=== PATIENT | male | born 1945 | race American Indian/Alaskan Native ===

== ENCOUNTER 2020-08-29 05:49 | Observation (INO) | payer OTHER ==
[2020-08-24 11:38] LABS: Hematocrit 36.6 % (35.5-45.6); Hemoglobin 12.4 gm/dl (11.8-15.2); Mean Corpuscular HGB Conc 34 % (32-34); Mean Corpuscular Volume 99 fl (84-94); Platelet Count 182 K/mm3 (140-440); Red Blood Count 3.71 M/mm3 (3.65-5.03); Red Cell Distribution Width 14.9 % (13.2-15.2)
[2020-08-24 11:57] LABS: Alanine Aminotransferase 16 units/L (7-56); Albumin 3.9 g/dL (3.9-5); BUN/Creatinine Ratio 9; Blood Urea Nitrogen 11 mg/dL (9-20); Calcium 8.6 mg/dL (8.4-10.2); Hemolysis Index 6
--- NOTE | 2020-08-24 15:52 | Anesthesia Consultation ---
Anesthesia Consult and Med Hx Date of service: 08/28/20 - Airway Anesthetic Teeth Evaluation: Crowns (Two missing teeth) ROM Head & Neck: Adequate Mental/Hyoid Distance: Adequate Mallampati Class: Class II Intubation Access Assessment: Good - Pre-Operative Health Status ASA Pre-Surgery Classification: ASA2 Proposed Anesthetic Plan: General - Pulmonary Hx Smoking: Yes (QUIT 2014) Hx Asthma: No Hx Respiratory Symptoms: No (+2FS. Pt is very active) COPD: No Hx Pneumonia: No Hx Sleep Apnea: No - Cardiovascular System Hx Hypertension: Yes Hx Coronary Artery Disease: Yes Hx Heart Attack/AMI: No Hx Pacemaker: No Hx Internal Defibrillator: No - Central Nervous System Hx Seizures: No Hx Back Pain: No Hx Psychiatric Problems: No - Gastrointestinal Hx Gastroesophageal Reflux Disease: Yes - Endocrine Hx End Stage Renal Disease: No Hx Cirrhosis: No Hx Liver Disease: No Hx Non-Insulin Dependent Diabetes: No (In the past. Had pancreatitis May 2018) - Hematic Hx Anemia: Yes (Had a blood transfusion) Hx Sickle Cell Disease: No - Other Systems Hx Alcohol Use: Yes (TEQUILA-WINE- 2 BEERS 2 SHOTS /DAY) Hx Substance Use: No Hx Cancer: No Hx Obesity: No
[2020-08-29] MEDS ORDERED: CELECOXIB 200 MG CAP PO NR (06:00)
[2020-08-29] MEDS ORDERED: ceFAZolin/Water 2 GM/20 ML 2 GM/20 ML SYRINGE IV NR (06:00)
[2020-08-29] MEDS ORDERED: MAGNESIUM OXIDE 400 MG TAB PO SCH (06:00)
[2020-08-29] MEDS ORDERED: SODIUM CHLORIDE 0.9% IV SCH (06:00)
[2020-08-29] MEDS ORDERED: ACETAMINOPHEN 325 MG TAB PO SCH (06:00)
[2020-08-29] MEDS ORDERED: LACTATED RINGERS 1,000 ML IV SCH (06:00)
[2020-08-29] MEDS ORDERED: GENTAMICIN IV SCH (06:00)
[2020-08-29] MEDS ORDERED: BACTERIOSTATIC SODIUM CHLORIDE 0.9% 30 ML VIAL INFILTRATI ONE (06:25)
[2020-08-29] MEDS ORDERED: MIDAZOLAM 2 MG/2 ML INJ IV ONE (06:48)
--- NOTE | 2020-08-29 07:07 | Anesthesia Day of Surgery ---
Anesthesia Day of Surgery - Day of Surgery Patient Examined: Yes Patient H&P Reviewed: Yes Patient is NPO: Yes
[2020-08-29] MEDS ORDERED: SODIUM CHLORIDE P/F VIAL 10 ML 10 ML ONE (07:14)
[2020-08-29] MEDS ORDERED: BUPIVACAINE/PF (0.5%) 5 MG/1 ML 30 ML VIAL INFILTRATI ONE ×2 (07:14→08:22)
[2020-08-29] MEDS ORDERED: NEOMY 40 MG/POLYMYXIN B 200,000 UNITS/ML (GU) AMPULE IR ONE ×2 (07:15→08:24)
[2020-08-29] MEDS ORDERED: rifAMPin 600 MG VIAL ONE (07:15)
[2020-08-29] MEDS ORDERED: SODIUM CHLORIDE 0.9% 500 ML 500 ML ONE (07:17)
[2020-08-29] MEDS ORDERED: fentaNYL 100 MCG/2 ML INJ ONE (07:34)
[2020-08-29] MEDS ORDERED: ONDANSETRON 4 MG/2 ML INJ IV PRN ×2 (07:34→10:00)
[2020-08-29] MEDS ORDERED: propofoL 200 MG/20 ML VIAL IV ONE (07:34)
[2020-08-29] MEDS ORDERED: LIDOCAINE MPF (2%) 20 MG/1 ML VIAL 5 ML ONE (07:34)
[2020-08-29] MEDS ORDERED: GENTAMICIN 40 MG/ML VIAL 2 ML ONE (07:47)
[2020-08-29] MEDS ORDERED: PHENYLEPHRINE/NS 1,000 MCG/10 ML SYRINGE (OR USE) IV ONE (07:54)
[2020-08-29] MEDS ORDERED: KETOROLAC 30 MG/1 ML INJ ONE (07:54)
[2020-08-29] MEDS ORDERED: ONDANSETRON 4 MG/2 ML INJ ONE (07:54)
[2020-08-29] MEDS ORDERED: rifAMPin 600 MG VIAL IV ONE (08:23)
[2020-08-29] MEDS ORDERED: SODIUM CHLORIDE 0.9% 500 ML IVPB IRRIGATION ONE (08:23)
[2020-08-29] MEDS ORDERED: GENTAMICIN 40 MG/ML VIAL 2 ML IV ONE (08:23)
[2020-08-29] MEDS ORDERED: SODIUM CHLORIDE 0.9% P/F 10 ML VIAL INFILTRATI ONE (08:24)
[2020-08-29] MEDS ORDERED: SODIUM CHLORIDE 0.9% IRR 1,500 ML BOTTLE IR ONE (08:25)
--- NOTE | 2020-08-29 09:06 | Short Stay Summary ---
Short Stay Documentation Date of service: 08/29/20 - History H&P: obtained from office - Allergies and Medications Current Medications: Allergies CODEINE-CAUSES UPSET STOMACH Adverse Reaction (Intermediate, Uncoded 08/22/20 16:54) Unknown Home Medications Medication Instructions Recorded Confirmed Last Taken Type Aspirin [Adult Aspirin] 81 mg PO DAILY 08/22/20 08/22/20 08/28/20 History Atorvastatin 20 mg PO DAILY 08/22/20 08/22/20 08/29/20 05:00 History Folic Acid 1,000 mcg PO DAILY 08/22/20 08/22/20 08/28/20 History One Daily Multivitamin Tablet 60 mg PO DAILY 08/22/20 08/22/20 08/28/20 History Pantoprazole [Protonix TAB] 20 mg PO BID 08/22/20 08/22/20 08/28/20 History Potassium Chloride 20 mcg PO DAILY 08/22/20 08/22/20 08/28/20 History Thiamine HCl [Vitamin B-1] 100 mg PO DAILY 08/22/20 08/22/20 08/28/20 History Vitamin B12 1,000 mcg PO DAILY 08/22/20 08/22/20 08/28/20 History Vitamin D3 25 mcg PO DAILY 08/22/20 08/22/20 08/28/20 History amLODIPine 10 mg PO DAILY 08/22/20 08/22/20 08/29/20 05:00 History carvediloL 25 mg PO BID 08/22/20 08/22/20 08/29/20 05:00 History Active Medications Acetaminophen (Acetaminophen 325 Mg Tab) 650 mg PO ONCE MAURICIO Stop: 08/29/20 21:00 Last Admin: 08/29/20 06:45 Dose: 650 mg Documented by: Celecoxib (Celecoxib 200 Mg Cap) 200 mg PO PREOP NR Stop: 08/29/20 21:00 Last Admin: 08/29/20 06:45 Dose: 200 mg Documented by: Hydromorphone HCl (Hydromorphone 1 Mg/1 Ml Inj) 0.5 mg IV Q10MIN PRN PRN Reason: Pain , Severe (7-10) Stop: 08/29/20 23:00 Lactated Ringer's (Lactated Ringers) 1,000 mls @ 100 mls/hr IV DIRECT MAURICIO Last Admin: 08/29/20 06:50 Dose: 100 mls/hr Documented by: Gentamicin Sulfate 132 mg/ (Sodium Chloride) 103.3 mls @ 200 mls/hr IV PREOP MAURICIO; Protocol Stop: 08/29/20 21:00 Cefazolin Sodium (Ancef/Sterile Water 2 Gm/20 Ml) 2 gm in 20 mls @ 80 mls/hr IV PREOP NR; Protocol Stop: 08/29/20 21:00 Magnesium Oxide (Magnesium Oxide 400 Mg Tab) 400 mg PO ONCE MAURICIO Stop: 08/29/20 21:00 Last Admin: 08/29/20 06:45 Dose: 400 mg Documented by: Ondansetron HCl (Ondansetron 4 Mg/2 Ml Inj) 4 mg IV ONCE PRN PRN Reason: Nausea And Vomiting Stop: 08/29/20 18:00 - Brief post op/procedure progress note Date of procedure: 08/29/20 Pre-op diagnosis: ed Post-op diagnosis: other (redundant scrotal skin) Procedure: ipp (cololast titan--- 22cm + 1 CM RTE) scrotaplasty Anesthesia: GETA Surgeon: CODI BXO Estimated blood loss: minimal Pathology: list (skin) Specimen disposition: to lab Condition: stable - Hospital course Hospital course: post op info on chart (pt has abx, pain meds at home) tanner urine & wrap looks good await bladder ultrasound if voids, ok to dc home ADDENDUM-- US--MILD MEDICAL RENAL DISEASE, PVR 100CC PT JUST VOIDED 300CC--- 1PM---SPOKE WITH NURSE DC HOME - Disposition Condition at discharge: Stable Short Stay Discharge Plan Follow up with: [facility] [Primary Care Provider] - 7 Days
[2020-08-29] MEDS ORDERED: HYDROmorphone 2 MG TAB PO PRN (09:30)
[2020-08-29] MEDS ORDERED: NALOXONE 0.4 MG/1 ML INJ IV PRN (09:30)
[2020-08-29] MEDS: HYDROmorphone 1 MG/1 ML INJ IV PRN ×3 (09:31→20:10)
[2020-08-29] MEDS ORDERED: MORPHINE 2 MG/1 ML INJ ONE ×2 (09:51→10:05)
[2020-08-29] MEDS ORDERED: NON-FORMULARY EACH (Amlodipine 10 MG) PO SCH (10:00)
[2020-08-29] MEDS ORDERED: POTASSIUM CHLORIDE PO SCH (10:00)
[2020-08-29] MEDS ORDERED: NON-FORMULARY EACH (Atorvastatin 20 MG) PO SCH (10:00)
[2020-08-29] MEDS ORDERED: traMADol 50 MG TAB PO PRN (10:00)
[2020-08-29] MEDS ORDERED: NON-FORMULARY EACH (Carvedilol 25 MG) PO SCH (10:00)
[2020-08-29] MEDS ORDERED: ceFAZolin/NS 1 GM/50 ML 1 GM/50 ML BAG IV SCH (10:00)
[2020-08-29] MEDS ORDERED: amLODIPine 10 MG TAB PO SCH (10:00)
[2020-08-29] MEDS: SODIUM CHLORIDE 0.45% 1000 ML 1,000 ML IV SCH ×2 (10:02→22:58)
[2020-08-29] MEDS: MORPHINE 2 MG/1 ML INJ IV PRN ×3 (10:08→10:40)
[2020-08-29] MEDS ORDERED: HYDROcodone/ACETAMINOPHEN 5-325 MG TAB PO PRN (10:51)
[2020-08-29] MEDS: amLODIPine 10 MG TAB PO SCH (10:52)
[2020-08-29] MEDS: PANTOPRAZOLE 20 MG TAB PO SCH ×2 (11:25→22:54)
[2020-08-29] MEDS: carvediloL 25 MG TAB PO SCH ×2 (11:26→22:58)
[2020-08-29] MEDS: POTASSIUM CHLORIDE ER 20 MEQ TAB PO SCH (11:30)
[2020-08-29] MEDS: HYDROmorphone 2 MG/1 ML INJ IV PRN ×2 (12:10→23:04)
--- NOTE | 2020-08-29 13:14 | Operative Report ---
PREOPERATIVE DIAGNOSIS: Erectile dysfunction. POSTOPERATIVE DIAGNOSIS: Erectile dysfunction, redundant scrotal skin. PROCEDURE: Insertion of inflatable penile prosthesis (Coloplast Titan 21 cm +1 cm rear tip video game engineer), injection of corporal body with pharmacologic agent, scrotoplasty. SURGEON: Kingsley Licea MD TECHNOLOGY ANALYST: Eli Maldonado. ANESTHESIA: General. ESTIMATED BLOOD LOSS: Minimal. FLUIDS: Crystalloid. COMPLICATIONS: No complications. INDICATIONS: This patient is a 74-year-old gentleman seen in the office for erectile dysfunction, refractory to medical management. He reviewed our video, his was also present for the visit. Discussed options. He agreed to proceed with surgical intervention. DESCRIPTION OF PROCEDURE: The patient was taken to the operative suite, placed in a supine position. After adequate general anesthesia, he was prepped and draped in a sterile fashion. Chung catheter was placed on the operative field. 60 mL of 0.25% Marcaine was injected. No curvature could be appreciated. Metal [place] retractor was used for exposure. A transscrotal incision was made with the Bovie. Sharp dissection was taken down to the corporal bodies, 2-0 Vicryl stay sutures were placed. Corporotomies were made bilaterally with the Bovie. Proximal and distal measurements revealed a 23 cm corporal body and therefore a 22 cm Titan Coloplast implant was used with the Conceal reservoir with 110 mL in the reservoir and 40 mL will be placed in the device. The reservoir was placed in the retropubic space via the right external ring as stated, 110 mL of fluid. No back pressure. 22 cm cylinders were prepped, placed in the corporal bodies with the aid of a Marc needle. Corporotomies were closed bilaterally using 2-0 Vicryl in a running fashion. Insufflation revealed an adequate cosmetic appearance. Tips of the device were at the junction of the coronal ridge. The pump was placed in the dependent portion of the scrotum. The pump and reservoir was connected with the quick click connection system. Copious irrigation was performed. Adequate hemostasis achieved. [place] layer was closed with 2-0 Vicryl in a running fashion. Pursestring suture was used to secure the pump in the dependent portion of the scrotum. Redundant scrotal skin was excised and sent for routine pathologic evaluation. Scrotal skin was then closed with 3-0 Vicryl in interrupted fashion. Collodion was placed, Xeroform gauze and a mummy wrap. The patient tolerated the procedure well and was extubated and taken to recovery room. He will be observed overnight. Eli Maldonado was present throughout the procedure at the bedside to assist. JOB# [id number] [facility]
--- NOTE | 2020-08-29 13:48 | Post Anesthesia Evaluation ---
- Post Anesthesia Evaluation Patient Participated: Yes Airway Patent: Yes Stable Respiratory Function: Yes Nausea/Vomiting: No Temp > 96.8F: Yes Pain Manageable: Yes Adequeate Hydration: Yes Anesthesia Complications: No Other Comments: Awaiting bed placement.
--- NOTE | 2020-08-29 14:29 | Consultation ---
History of Present Illness - Reason for Consult Consult date: 08/29/20 hypertension Requesting physician: CODI BOX - History of Present Illness Patient is a 74-year-old male with past medical history of hypertension hyperlipidemia rectal dysfunction who presented for scrotaplasty with ipp. Patient was seen after the procedures were consulted to assist with medical management. Apart from surgical site pain he denied any nausea vomiting or diarrhea. He was a little bit lethargic otherwise no acute distress noted. He reports compliance with his home medications. Past History Past Medical History: hypertension, hyperlipidemia Past Surgical History: Other (Scrotoplasty) Social history: no significant social history, Family history: no significant family history Medications and Allergies Allergies Allergy/AdvReac Type Severity Reaction Status Date / Time CODEINE-CAUSES UPSET STOMACH AdvReac Intermediate Unknown Uncoded 08/22/20 16:54 Home Medications Medication Instructions Recorded Confirmed Last Taken Type Aspirin [Adult Aspirin] 81 mg PO DAILY 08/22/20 08/22/20 08/28/20 History Atorvastatin 20 mg PO DAILY 08/22/20 08/22/20 08/29/20 05:00 History Folic Acid 1,000 mcg PO DAILY 08/22/20 08/22/20 08/28/20 History One Daily Multivitamin Tablet 60 mg PO DAILY 08/22/20 08/22/20 08/28/20 History Pantoprazole [Protonix TAB] 20 mg PO BID 08/22/20 08/22/20 08/28/20 History Potassium Chloride 20 mcg PO DAILY 08/22/20 08/22/20 08/28/20 History Thiamine HCl [Vitamin B-1] 100 mg PO DAILY 08/22/20 08/22/20 08/28/20 History Vitamin B12 1,000 mcg PO DAILY 08/22/20 08/22/20 08/28/20 History Vitamin D3 25 mcg PO DAILY 08/22/20 08/22/20 08/28/20 History amLODIPine 10 mg PO DAILY 08/22/20 08/22/20 08/29/20 05:00 History carvediloL 25 mg PO BID 08/22/20 08/22/20 08/29/20 05:00 History Active Meds: Active Medications Acetaminophen (Acetaminophen 325 Mg Tab) 650 mg PO ONCE MAURICIO Stop: 08/29/20 21:00 Last Admin: 08/29/20 06:45 Dose: 650 mg Documented by: Amlodipine Besylate (Amlodipine 10 Mg Tab) 10 mg PO DAILY MAURICIO Last Admin: 08/29/20 10:52 Dose: Not Given Documented by: Atorvastatin Calcium (Atorvastatin 20 Mg Tab) 20 mg PO QHS MAURICIO Carvedilol (Carvedilol 25 Mg Tab) 25 mg PO Q12HR MAURICIO Last Admin: 08/29/20 11:26 Dose: 25 mg Documented by: Celecoxib (Celecoxib 200 Mg Cap) 200 mg PO PREOP NR Stop: 08/29/20 21:00 Last Admin: 08/29/20 06:45 Dose: 200 mg Documented by: Hydromorphone HCl (Hydromorphone 1 Mg/1 Ml Inj) 0.5 mg IV Q10MIN PRN PRN Reason: Pain , Severe (7-10) Stop: 08/29/20 23:00 Last Admin: 08/29/20 09:42 Dose: 0.5 mg Documented by: Hydromorphone HCl (Hydromorphone 2 Mg/1 Ml Inj) 2 mg IV Q4H PRN PRN Reason: Pain , Severe (7-10) Last Admin: 08/29/20 12:10 Dose: 2 mg Documented by: Hydromorphone HCl (Hydromorphone 2 Mg Tab) 2 mg PO Q4H PRN PRN Reason: Pain , Severe (7-10) Gentamicin Sulfate 132 mg/ (Sodium Chloride) 103.3 mls @ 200 mls/hr IV PREOP MAURICIO; Protocol Stop: 08/29/20 21:00 Cefazolin Sodium (Ancef/Sterile Water 2 Gm/20 Ml) 2 gm in 20 mls @ 80 mls/hr IV PREOP NR; Protocol Stop: 08/29/20 21:00 Sodium Chloride (Nacl 0.45% 1000 Ml) 1,000 mls @ 100 mls/hr IV DIRECT MAURICIO Last Admin: 08/29/20 10:02 Dose: 100 mls/hr Documented by: Cefazolin Sodium (Ancef/Ns 1 Gm/50 Ml) 1 gm in 50 mls @ 100 mls/hr IV Q8H MAURICIO; Protocol Stop: 08/29/20 18:29 Magnesium Oxide (Magnesium Oxide 400 Mg Tab) 400 mg PO ONCE MAURICIO Stop: 08/29/20 21:00 Last Admin: 08/29/20 06:45 Dose: 400 mg Documented by: Morphine Sulfate (Morphine 2 Mg/1 Ml Inj) 2 mg IV Q10MIN PRN PRN Reason: Pain, Moderate (4-6) Stop: 08/29/20 20:00 Last Admin: 08/29/20 10:40 Dose: 2 mg Documented by: Naloxone HCl (Naloxone 0.4 Mg/1 Ml Inj) 0.1 mg IV Q2MIN PRN PRN Reason: Res Rate </= 8 or 02 SAT < 92% Ondansetron HCl (Ondansetron 4 Mg/2 Ml Inj) 4 mg IV Q8H PRN PRN Reason: N/V unrelieved by Reglan Pantoprazole Sodium (Pantoprazole 20 Mg Tab) 20 mg PO BID [facility] Last Admin: 08/29/20 11:25 Dose: 20 mg Documented by: Potassium Chloride (Potassium Chloride Er 20 Meq Tab) 20 meq PO QDAY [facility] Last Admin: 08/29/20 11:30 Dose: 20 meq Documented by: Tramadol HCl (Tramadol 50 Mg Tab) 50 mg PO Q6H PRN PRN Reason: Pain, Moderate (4-6) Review of Systems All systems: negative Exam - Physical Exam Narrative exam: VITAL SIGNS: Reviewed. GENERAL: The patient appears normally developed, Vital signs as documented. HEAD: No signs of head trauma. EYES: Pupils are equal. Extraocular motions intact. EARS: Hearing grossly intact. MOUTH: Oropharynx is normal. NECK: No adenopathy, no JVD. CHEST: Chest with clear breath sounds bilaterally. No wheezes, rales, or rhonchi. CARDIAC: Regular rate and rhythm. S1 and S2, without murmurs, gallops, or rubs. VASCULAR: No Edema. Peripheral pulses normal and equal in all extremities. ABDOMEN: Soft, mildly tender in the suprapubic area with some fullness, non distended. No rebound or guarding, and no masses palpated. Bowel Sounds normal. : Dressing over the penile area erythema noted no bleeding appreciated. Chung in place. MUSCULOSKELETAL: Good range of motion of all major joints. Extremities without clubbing, cyanosis or edema. NEUROLOGIC EXAM: Alert and oriented x 3 No focal sensory or strength deficits. Speech normal. Follows commands. PSYCHIATRIC: Mood normal. SKIN: detail exam as documented in skin assessment - Constitutional Vitals: Temp Pulse Resp BP Pulse Ox 97.3 F L 62 12 108/73 97 08/29/20 14:00 08/29/20 14:00 08/29/20 14:00 08/29/20 14:00 08/29/20 13:00 Results - Labs CBC & Chem 7: 08/24/20 11:00 08/24/20 11:00 Assessment and Plan Patient is a 74-year-old male with past medical history of hypertension hyperlipidemia rectal dysfunction who presented for scrotaplasty with ipp. Patient was seen after the procedures were consulted to assist with medical management. Apart from surgical site pain he denied any nausea vomiting or diarrhea. He was a little bit lethargic otherwise no acute distress noted. He reports compliance with his home medications. ED s/p Scrotaplasty with IPP HTN Hyperlipidemia Plan Resume home meds Monitor Urine output Pain control DVT/GI prophy Thank you for the opportunity to assist in the management of your patient, will follow along with you during hospitalization
[2020-08-29] MEDS: ceFAZolin/NS 1 GM/50 ML 1 GM/50 ML BAG IV SCH (17:49)
[2020-08-30] MEDS: ceFAZolin/NS 1 GM/50 ML 1 GM/50 ML BAG IV SCH (02:17)
[2020-08-30] MEDS: HYDROmorphone 2 MG/1 ML INJ IV PRN ×2 (05:21→14:54)
--- NOTE | 2020-08-30 08:21 | Progress Note ---
Assessment and Plan Assessment and plan: Patient is a 74-year-old male with past medical history of hypertension hyperlipidemia rectal dysfunction who presented for scrotaplasty with ipp. Patient was seen after the procedures were consulted to assist with medical management. Apart from surgical site pain he denied any nausea vomiting or diarrhea. He was a little bit lethargic otherwise no acute distress noted. He reports compliance with his home medications. Urinary retention ED s/p Scrotaplasty with IPP HTN Hyperlipidemia Plan Check renal ultrasound, and bedside bladder residual Check BMP Discussed with Nursing staff Monitor Urine output Pain control DVT/GI prophy Thank you for the opportunity to assist in the management of your patient, will follow along with you during hospitalization History Interval history: Patient seen and examined this morning resting comfortably although still with some suprapubic tenderness. Nursing staff reports 200 cc of urine output yesterday Hospitalist Physical - Physical exam Narrative exam: VITAL SIGNS: Reviewed. GENERAL: The patient appears normally developed, Vital signs as documented. HEAD: No signs of head trauma. EYES: Pupils are equal. Extraocular motions intact. EARS: Hearing grossly intact. MOUTH: Oropharynx is normal. NECK: No adenopathy, no JVD. CHEST: Chest with clear breath sounds bilaterally. No wheezes, rales, or rhonchi. CARDIAC: Regular rate and rhythm. S1 and S2, without murmurs, gallops, or rubs. VASCULAR: No Edema. Peripheral pulses normal and equal in all extremities. ABDOMEN: Soft, mildly tender in the suprapubic area with some fullness, non distended. No rebound or guarding, and no masses palpated. Bowel Sounds normal. : Dressing over the penile area erythema noted no bleeding appreciated. Chung in place. MUSCULOSKELETAL: Good range of motion of all major joints. Extremities without clubbing, cyanosis or edema. NEUROLOGIC EXAM: Alert and oriented x 3 No focal sensory or strength deficits. Speech normal. Follows commands. PSYCHIATRIC: Mood normal. SKIN: detail exam as documented in skin assessment - Constitutional Vitals: Temp Pulse Resp BP Pulse Ox 100.2 F H 75 18 138/74 95 08/30/20 05:10 08/30/20 05:10 08/30/20 05:10 08/30/20 05:10 08/30/20 05:10 Results - Labs CBC & Chem 7: 08/24/20 11:00 08/24/20 11:00 Labs: Laboratory Last Values WBC 3.6 K/mm3 (4.5-11.0) L 08/24/20 11:00 RBC 3.71 M/mm3 (3.65-5.03) 08/24/20 11:00 Hgb 12.4 gm/dl (11.8-15.2) 08/24/20 11:00 Hct 36.6 % (35.5-45.6) 08/24/20 11:00 MCV 99 fl (84-94) H 08/24/20 11:00 MCH 33 pg (28-32) H 08/24/20 11:00 MCHC 34 % (32-34) 08/24/20 11:00 RDW 14.9 % (13.2-15.2) 08/24/20 11:00 Plt Count 182 K/mm3 (140-440) 08/24/20 11:00 Sodium 138 mmol/L (137-145) 08/24/20 11:00 Potassium 4.1 mmol/L (3.6-5.0) 08/24/20 11:00 Chloride 105.0 mmol/L (98-107) 08/24/20 11:00 Carbon Dioxide 27 mmol/L (22-30) 08/24/20 11:00 Anion Gap 10 mmol/L 08/24/20 11:00 BUN 11 mg/dL (9-20) 08/24/20 11:00 Creatinine 1.2 mg/dL (0.8-1.3) 08/24/20 11:00 Estimated GFR > 60 ml/min 08/24/20 11:00 BUN/Creatinine Ratio 9 % 08/24/20 11:00 Glucose 133 mg/dL (75-100) H 08/24/20 11:00 Calcium 8.6 mg/dL (8.4-10.2) 08/24/20 11:00 Total Bilirubin 0.40 mg/dL (0.1-1.2) 08/24/20 11:00 AST 27 units/L (5-40) 08/24/20 11:00 ALT 16 units/L (7-56) 08/24/20 11:00 Alkaline Phosphatase 111 units/L (35-129) 08/24/20 11:00 Total Protein 7.1 g/dL (6.3-8.2) 08/24/20 11:00 Albumin 3.9 g/dL (3.9-5) 08/24/20 11:00 Albumin/Globulin Ratio 1.2 % 08/24/20 11:00 Coronavirus (PCR) Negative (Negative) 08/24/20 10:55 Chung/IV: Voiding Method Indwelling Catheter Active Medications - Current Medications Current Medications: Generic Name Dose Route Start Last Admin Trade Name Freq PRN Reason Stop Dose Admin Amlodipine Besylate 10 mg 08/29/20 10:00 08/29/20 10:52 Amlodipine 10 Mg Tab PO Not Given DAILY MAURICIO Atorvastatin Calcium 20 mg 08/29/20 21:00 08/29/20 22:55 Atorvastatin 20 Mg Tab PO 20 mg QHS MAURICIO Administration Carvedilol 25 mg 08/29/20 10:00 08/29/20 22:58 Carvedilol 25 Mg Tab PO 25 mg Q12HR MAURICIO Administration Hydromorphone HCl 2 mg 08/29/20 09:30 08/30/20 05:21 Hydromorphone 2 Mg/1 Ml Inj IV 2 mg Q4H PRN Administration Pain , Severe (7-10) Hydromorphone HCl 2 mg 08/29/20 09:30 Hydromorphone 2 Mg Tab PO Q4H PRN Pain , Severe (7-10) Sodium Chloride 1,000 mls @ 100 mls/hr 08/29/20 10:00 08/29/20 22:58 Nacl 0.45% 1000 Ml IV 100 mls/hr DIRECT MAURICIO Administration Naloxone HCl 0.1 mg 08/29/20 09:30 Naloxone 0.4 Mg/1 Ml Inj IV Q2MIN PRN Res Rate </= 8 or 02 SAT < 92% Ondansetron HCl 4 mg 08/29/20 10:00 Ondansetron 4 Mg/2 Ml Inj IV Q8H PRN N/V unrelieved by Abilio Pantoprazole Sodium 20 mg 08/29/20 10:00 08/29/20 22:54 Pantoprazole 20 Mg Tab PO 20 mg BID MAURICIO Administration Potassium Chloride 20 meq 08/29/20 11:00 08/29/20 11:30 Potassium Chloride Er 20 Meq Tab PO 20 meq QDAY MAURICIO Administration Tramadol HCl 50 mg 08/29/20 10:00 08/29/20 16:24 Tramadol 50 Mg Tab PO 50 mg Q6H PRN Administration Pain, Moderate (4-6)
--- NOTE | 2020-08-30 10:37 | Post Anesthesia Evaluation ---
- Post Anesthesia Evaluation Patient Participated: No (patient discharged) Airway Patent: Yes Stable Respiratory Function: Yes Nausea/Vomiting: No Temp > 96.8F: No Pain Manageable: Yes Adequeate Hydration: Yes Anesthesia Complications: Yes Block Receding Appropriately: Not Applicable Patient on Ventilator: No
--- NOTE | 2020-08-30 11:37 | Ultrasound Report ---
ULTRASOUND RENAL INDICATION / CLINICAL INFORMATION: Urinary retention. COMPARISON: None available. FINDINGS: RIGHT KIDNEY: Length = 8.8 cm. [normal > 9 cm] - Parenchymal Thickness = 1.2 cm. [normal > 1.5 cm] - Echogenicity: Increased - Hydronephrosis: None. - Cyst or mass: No significant abnormality. - Stones: None seen. LEFT KIDNEY: Length = 10.2 cm. [normal > 9 cm] - Parenchymal Thickness = 0.4 cm. [normal > 1.5 cm] - Echogenicity: Increased - Hydronephrosis: None. - Cyst or mass: A 2.7 cm simple cyst is noted near mid pole - Stones: None seen. URINARY BLADDER: The bladder is only partially distended with prevoid bladder volume measuring 99 cc. No obvious abnormality is appreciated on ultrasound. Please note the patient was unable to void. FREE FLUID: None. ADDITIONAL FINDINGS: None. IMPRESSION: Mild medical renal disease. 2.7 cm left renal cyst. Prevoid bladder volume measures 100 cc. Signer Name: Angelo Mon Jr, MD Signed: 08/30/2020 11:32 AM Workstation Name: [id number]
[2020-08-30 12:54] LABS: Calcium 7.7 mg/dL (8.4-10.2)
[2020-08-30] MEDS: carvediloL 25 MG TAB PO SCH (13:20)
[2020-08-30] MEDS: amLODIPine 10 MG TAB PO SCH (13:21)
[2020-08-30] MEDS: PANTOPRAZOLE 20 MG TAB PO SCH (13:21)
[2020-08-30] MEDS: POTASSIUM CHLORIDE ER 20 MEQ TAB PO SCH (13:25)
[2020-08-30 14:46] VITALS: BP 140/67
== END 2020-08-30 17:30 | disposition home or self-care (01) ==
LOC: OR 05:49 → 3A 09:10 → 3B 14:13
PROVIDERS: ADMIT Urology; ATTEND Urology
DX: N52.01 Erectile dysfunction due to arterial insufficiency (principal); Z20.822 Contact with and (suspected) exposure to COVID-19; N50.89 Other specified disorders of the male genital organs; I10 Essential (primary) hypertension; E78.5 Hyperlipidemia, unspecified; R33.9 Retention of urine, unspecified; Z79.82 Long term (current) use of aspirin; Z79.899 Other long term (current) drug therapy
CPT/HCPCS: 36415; 54401; 55175; 76770; 80048; 80053; 85027; 88305; 96361; 96365; 96366; 96375; 96376; A9270; C1813; G0378; J0690; J1170; J1580; J2250; J2270; J2370; J2405; J2704; J3010; J3490; J7030; J7040; J7120; U0003; 88302; J1885